=== PATIENT | male | born 1995 | race Caucasian/White ===

== ENCOUNTER 2017-11-20 15:24 | Emergency (ER) | payer OTHER ==
[~2017-11-20] VITALS: Ht 193 cm; Wt 79.5 kg
[2017-11-20 15:25] VITALS: BP 128/78
== END 2017-11-20 16:22 | disposition home or self-care (01) ==
LOC: ED 16:01
DX: S06.0X9A Concussion with loss of consciousness of unspecified duration, initial encounter (principal); S00.81XA Abrasion of other part of head, initial encounter; W19.XXXA Unspecified fall, initial encounter; Y93.89 Activity, other specified; Y99.8 Other external cause status; Y92.009 Unspecified place in unspecified non-institutional (private) residence as the place of occurrence of the external cause
CPT/HCPCS: 70450; 99284